=== PATIENT | female | born 1995 | race Caucasian/White ===

== ENCOUNTER 2017-01-04 09:34 | Emergency (ER) | payer SELFPAY ==
[~2017-01-04] VITALS: Ht 160 cm; Wt 49.9 kg
--- NOTE | 2017-01-04 10:06 | PHYS DOC ---
Past Medical History Past Medical History: No Pertinent History Past Surgical History: Other Additional Past Surgical Histo: bartholin cyst removal Alcohol Use: None Drug Use: None Adult General Chief Complaint Chief Complaint: KNEE INJURY HPI HPI Patient is a 21 year old female with no significant medical history who presents today with 7 out of 10 left knee pain that began on January 02, 2017 after she dislocated her left knee in her sleep. Patient states the knee went back in place by itself. Patient stated this is a chronic issue. Patient states the pain and swelling has gotten worse in the last 1 day. Review of Systems Review of Systems Constitutional: Denies fever or chills [] Eyes: Denies change in visual acuity, redness, or eye pain [] Musculoskeletal: Left knee pain Integument: Denies rash or skin lesions [] Neurologic: Denies headache, focal weakness or sensory changes [] Endocrine: Denies polyuria or polydipsia [] Allergies Allergies Allergies Coded Allergies Type Severity Reaction Last Updated Verified No Known Drug Allergies 01/10/15 No Physical Exam Physical Exam Constitutional: Well developed, well nourished, no acute distress, non-toxic appearance. [] HENT: Normocephalic, atraumatic, bilateral external ears normal, oropharynx moist, no oral exudates, nose normal. [] Skin: Warm, dry, no erythema, no rash. [] Back: No tenderness, no CVA tenderness. [] Extremities: Left knee with no obvious deformity. Slight soft tissue swelling noted diffusely on the left knee. Slight tenderness on palpation of the left anterior knee. Negative Aleyda sign and negative Topher's sign negative anterior-posterior drawer sign to the left lower extremity. +2 left pedal pulse. Cap refill less than 2 seconds the left lower extremity. Sensation intact to the left lower extremity. Patient able to hold her left knee straight with no difficulty. Neurologic: Alert and oriented X 3, normal motor function, normal sensory function, no focal deficits noted. [] Psychologic: Affect normal, judgement normal, mood normal. [] Current Patient Data Vital Signs Vital Signs Date Time Temp Pulse Resp B/P (MAP) Pulse Ox O2 Delivery O2 Flow Rate FiO2 01/04/17 09:48 98.4 96 16 123/68 (86) 99 Room Air 98.4 EKG EKG [] Radiology/Procedures Radiology/Procedures []PROCEDURE: KNEE RIGHT 4V Right knee radiographs History: Right knee pain after dislocating it in her sleep 2 days ago. Comparison: None. Findings: AP, lateral, oblique, and merchant view of the right knee. No acute fracture or dislocation is identified. There is evidence of mild joint space loss of the medial compartment. Impression: 1. No acute osseous traumatic injury identified. 2. Evidence of mild loss of medial compartment joint space. If there is concern for meniscal injury or other internal derangement, elective, nonemergent MRI could be performed. DICTATED and SIGNED BY: STANLEY MCCRACKEN MD DATE: 01/04/17 1056 CC: HONG BETANCOURT APRN; NO PCP ~ Course & Med Decision Making Course & Med Decision Making Pertinent Labs and Imaging studies reviewed. (See chart for details) Patient is in the ED with complaints of left knee dislocation that occurred on in her sleep. She states then he went back in place by itself. She states she has increased pain and swelling. Right knee x-rays interpreted by radiologist are negative for any acute findings. Radiologist mentions patient has loss of medial compartment joint space. They recommend MRI as an outpatient if pain continues. I spoke to patient. She was put in an immobilizer in the ED by the hearing aid repair technician. Neurovascular exam done by me is normal, cap refill less than 2 seconds. Ice elevation encouraged. Provided orthopedic doctor for follow-up. Dragon Disclaimer Dragon Disclaimer This electronic medical record was generated, in whole or in part, using a voice recognition dictation system. Departure Departure Impression: Primary Impression: Right knee sprain Disposition: 01 HOME, SELF-CARE Condition: STABLE Referrals: LISA MCDOWELL NP (PCP) JARED HOLLIDAY MD Follow-up with the provided doctor in one week Patient Instructions: Knee Sprain Additional Instructions: You were seen for right knee pain. We highly recommend you follow-up with the orthopedic doctor provided in the next 7 days. Ice and elevate the extremity. Scripts Methylprednisolone (MEDROL) 4 Mg Tab.ds.pk 1 PKG PO UD, #1 PKG Prov: HONG BETANCOURT APRN 01/04/17 Tramadol Hcl (ULTRAM) 50 Mg Tablet 1 TAB PO Q6HRS, #30 TAB Prov: HONG BETANCOURT APRN 01/04/17 Problem Qualifiers Primary Impression: Right knee sprain Encounter type: initial encounter Involved ligament of knee: unspecified ligament Qualified Codes: S83.91XA - Sprain of unspecified site of right knee , initial encounter HONG BETANCOURT VENTILATION EQUIPMENT TENDER January 04, 2017 10:06
--- NOTE | 2017-01-04 11:00 | RAD ---
Right knee radiographs History: Right knee pain after dislocating it in her sleep 2 days ago. Comparison: None. Findings: AP, lateral, oblique, and merchant view of the right knee. No acute fracture or dislocation is identified. There is evidence of mild joint space loss of the medial compartment. Impression: 1. No acute osseous traumatic injury identified. 2. Evidence of mild loss of medial compartment joint space. If there is concern for meniscal injury or other internal derangement, elective, nonemergent MRI could be performed.
[2017-01-04 12:02] VITALS: BP 121/68
[2017-01-04] MEDS ORDERED: METH4TAB2 PO (12:02)
[2017-01-04] MEDS ORDERED: TRAM-29 PO (12:02)
== END 2017-01-04 12:12 | disposition home or self-care (01) ==
LOC: ER 09:34
DX: S83.91XA Sprain of unspecified site of right knee, initial encounter (principal); X58.XXXA Exposure to other specified factors, initial encounter; Y93.89 Activity, other specified; Y92.89 Other specified places as the place of occurrence of the external cause; Y99.8 Other external cause status
CPT/HCPCS: 29505; 73564; 99284

== ENCOUNTER 2017-01-31 00:57 | Emergency (ER) | payer SELFPAY ==
[~2017-01-31] VITALS: Ht 160 cm; Wt 52.2 kg
[~2017-01-31 00:57] MED LIST: METH4TAB2 PO; TRAM-48 PO
[2017-01-31 01:15] VITALS: BP 152/83
[2017-01-31] MEDS ORDERED: LIDOCAINE 1% / SOD BICARB 8.4% 20 ML VIAL. IJ ONE (03:00)
[2017-01-31] MEDS ORDERED: DIPHTH,PERTUSS(ACELL),TET TOX 0.5 ML DISP.SYRIN. VAX IM ONE (03:00)
[2017-01-31] MEDS ORDERED: HYDROcodone/APAP 5/325MG 1 TAB TABLET PO ONE (04:00)
[2017-01-31] MEDS ORDERED: CLIN300C8 PO (04:04)
[2017-01-31] MEDS ORDERED: HYDR-2758 PO (04:04)
--- NOTE | 2017-01-31 04:04 | PHYS DOC ---
Past Medical History Past Medical History: Other Additional Past Medical Histor: ABSCESS Past Surgical History: Other Additional Past Surgical Histo: bartholin cyst removal Alcohol Use: None Drug Use: None Adult General Chief Complaint Chief Complaint: SKIN RASH/ABSCESS HPI HPI 21-year-old female presenting to the emergency department with swelling in her right labia for the past week. She reports it being red firm painful. The pain is moderate nonradiating intermittent and without alleviating factors. She has a history of Bartholin abscess. Review of systems is negative for chest pain shortness of breath nausea vomiting fevers chills dysuria polyuria pain on urination or increased urinary frequency. All other review of systems is negative unless otherwise noted in history of present illness. ED course: 21-year-old female presenting to the emergency department with a right labial abscess. Incision and drainage performed. The patient was then discharged home in stable condition to follow up with their primary care physician over the next 2-3 days. They were to return if their symptoms worsened or if they were concerned for any reason. [id number] discharge instructions and return precautions were given. Patient's questions were answered to their satisfaction. Patient is comfortable plan.; Review of Systems Review of Systems SEE ABOVE. Current Medications Current Medications Current Medications Medications (Trade) Dose Ordered Sig/[facility] Start Time Stop Time Status Last Admin Dose Admin Acetaminophen/ Hydrocodone Bitart (Lortab 5/325) 2 tab 1X ONCE 01/31/17 04:00 01/31/17 04:01 DC 01/31/17 03:26 2 TAB Diphtheria/ Tetanus/Acell Pertussis (Boostrix) 0.5 ml ONCE ONCE 01/31/17 03:00 01/31/17 03:01 DC 01/31/17 03:12 0.5 ML Lidocaine/Sodium Bicarbonate (Buffered Lidocaine 1%) 20 ml 1X ONCE 01/31/17 03:00 01/31/17 03:01 DC 01/31/17 03:27 20 ML Allergies Allergies Allergies Coded Allergies Type Severity Reaction Last Updated Verified No Known Drug Allergies 01/10/15 No Physical Exam Physical Exam Constitutional: Well developed, well nourished, no acute distress, non-toxic appearance. HENT: Normocephalic, atraumatic, bilateral external ears normal, oropharynx moist, no oral exudates, nose normal. [] Eyes: PERRLA, EOMI, conjunctiva normal, no discharge. [] Neck: Normal range of motion, no tenderness, supple, no stridor. Cardiovascular:Heart rate regular rhythm, no murmur [] Lungs & Thorax: Bilateral breath sounds clear to auscultation Abdomen: Bowel sounds normal, soft, no tenderness, no masses, no pulsatile masses. [] Skin: Warm, dry, no erythema, no rash. [] Back: No tenderness, no CVA tenderness. Extremities: No tenderness, no cyanosis, no clubbing, ROM intact, no edema. Neurologic: Alert and oriented X 3, normal motor function, normal sensory function, no focal deficits noted. [] Psychologic: Affect normal, judgement normal, mood normal. [] Current Patient Data Vital Signs Vital Signs Date Time Temp Pulse Resp B/P (MAP) Pulse Ox O2 Delivery O2 Flow Rate FiO2 01/31/17 03:26 18 Room Air 01/31/17 01:15 98.8 115 152/83 (106) 97 98.8 EKG EKG [] Radiology/Procedures Radiology/Procedures [] Course & Med Decision Making Course & Med Decision Making Pertinent Labs and Imaging studies reviewed. (See chart for details) [] Dragon Disclaimer Dragon Disclaimer This electronic medical record was generated, in whole or in part, using a voice recognition dictation system. Departure Departure Impression: Primary Impression: Bartholin's gland abscess Disposition: 01 HOME, SELF-CARE Condition: STABLE Referrals: NO PCP (PCP) PRASHANT MERAZ Jr, MD Patient Instructions: Bartholin's Cyst and Abscess-Brief Additional Instructions: Thank you for allowing us to participate in your care today. Followup with your primary care physician in 3 days if your symptoms do not improve. Call your Primary Doctor tomorrow and inform them of your visit today. If you do not have a primary care provider you can ask for a list of our primary care providers. Return to the emergency department you have any new or concerning findings. This should be evaluated by the primary care physician and any necessary consulting services for continued management within a few days after discharge. Return to emergency room if you have any new or concerning symptoms including but not limited to fever, chills, nausea, vomiting, intractable pain, any new rashes, chest pain, shortness of air, uncontrolled bleeding, difficulty breathing, and/or vision loss. You may have been prescribed medication that can change in your level of thinking and ability to operate machinery. These medications include hydrocodone and Ativan. Also, Benadryl has been known to do this as well. Be sure to check with your pharmacist and ask if the medications you've prescribed can affect your level of consciousness. I recommend not operating heavy machinery or driving while on medication such as these. Scripts Clindamycin Hcl (CLINDAMYCIN HCL) 300 Mg Capsule 1 CAP PO TID, #21 CAP Prov: RITIKA QURESHI MD 01/31/17 Hydrocodone Bit/Acetaminophen (HYDROCODONE-APAP 5-325 ) 1 Each Tablet 1 TAB PO PRN Q6HRS Y for PAIN, #15 TAB 0 Refills Be careful as this medication may cause you to be drowsy or tired. Do not drive on this medication. Prov: RITIKA QURESHI MD 01/31/17 Incision and Drainage Indication: Bartholin's cyst abscess Procedure: The patient was positioned appropriately. 1% buffered lidocaine was used for anesthesia. A small incision was made at the apex of the abscess. Purulent drainage was expressed. Unfortunately we do not have a [facility] at this time. The patient tolerated the procedure well. Palpitations none. RITIKA QURESHI MD Jan 31, 2017 04:04
== END 2017-01-31 04:29 | disposition home or self-care (01) ==
LOC: ER 01:10
DX: N75.1 Abscess of Bartholin's gland (principal)
CPT/HCPCS: 56420; 90471; 90715; 99284-25